=== PATIENT | male | born 1985 | race Asian ===

== ENCOUNTER 2016-12-25 19:08 | Emergency (ER) | payer OTHER ==
[~2016-12-25] VITALS: Ht 182.9 cm; Wt 97.5 kg
--- NOTE | 2016-12-25 19:10 | NUR ---
Brought in by law officer in custody for medical clearance and blood alcohol draw. Patient to [facility] for evaluation.
--- NOTE | 2016-12-25 19:20 | NUR ---
Patient brought to ER by law enforcement for medical clearance and blood alcohol draw. Per law enforcement, patient "was arrested for DUI" denies KO, no traffic accident. patient deneis any medical complaints. AAOx4, unlabored breathing, no signs of acute distress.
[2016-12-25 19:21] VITALS: BP_SYST 168
--- NOTE | 2016-12-25 19:40 | NUR ---
Per lawn and garden technician, patient "refuses to sign the blood draw consent" Officer informed that without consent or court order, we are unable to draw blood. MD & charge aware.
--- NOTE | 2016-12-25 20:07 | NUR ---
ER MD Oconnell at bedside for evaluation
[2016-12-25 20:30] VITALS: BP_SYST 138
--- NOTE | 2016-12-25 20:30 | NUR ---
Patient discharged in custody of law enforcement, given written and verbal discharge instructions and verbalizes understanding. Patient in stable condition. ID arm band removed. Patient educated on pain management and to follow up with PMD. Pain Scale 0/10. Opportunity for questions provided and answered.
== END 2016-12-25 20:30 ==
LOC: SED 19:08
DX: Z02.89 Encounter for other administrative examinations (principal)
CPT/HCPCS: 99283